=== PATIENT | female | born 1970 | race Caucasian/White ===

== ENCOUNTER 2018-01-05 15:12 | Emergency (ER) | payer OTHER ==
[~2018-01-05] VITALS: Ht 160 cm; Wt 63.5 kg
--- NOTE | 2018-01-05 15:30 | ER Report ---
History and Physical Time Seen By MD: 15:16 Hx. of Stated Complaint: PATIENT WRECKED SKIING AND HURT HER LEFT KNEE. HPI/ROS CHIEF COMPLAINT: Left knee injury HISTORY OF PRESENT ILLNESS: Patient is a 47-year-old female accompanied by her mother, who presents the ED with complaint of left knee injury that occurred about an hour ago. She states that she came off a ski lift and twisted her left knee. She states that she had pain bearing weight after this. She has noticed pain with any range of motion of her knee. She states that she feels it is slightly swollen. She is not taking any medication for this. She has not applied ice. REVIEW OF SYSTEMS: Respiratory: No cough, no dyspnea. Cardiovascular: No chest pain, no palpitations. Gastrointestinal: No vomiting, no abdominal pain. Musculoskeletal: See history of present illness. Allergies: Coded Allergies: sulfamethoxazole (Verified Allergy, Intermediate, HIVES, 01/05/18) trimethoprim (Verified Allergy, Intermediate, HIVES, 01/05/18) Home Meds No Active Prescriptions or Reported Meds Reviewed Nurses Notes: Yes Old Medical Records Reviewed: Yes Hx Substance Use Disorder: No Hx Alcohol Use: No Constitutional Vital Sign - Last 24 Hours 01/05/18 01/05/18 01/05/18 01/05/18 15:12 15:17 15:18 15:27 Temp 99.1 Pulse ??? 120 116 Resp 24 B/P (MAP) 169/95 (119) 169/95 Pulse Ox 96 97 O2 Delivery Room Air 01/05/18 01/05/18 01/05/18 01/05/18 15:42 15:46 15:57 16:00 Pulse 106 113 B/P (MAP) 124/80 (95) 125/76 (92) Pulse Ox 95 96 01/05/18 01/05/18 01/05/18 16:12 16:27 16:30 Pulse 109 104 B/P (MAP) 134/74 (94) Pulse Ox 95 95 Physical Exam General Appearance: The patient is alert, has no immediate need for airway protection and no current signs of toxicity. Patient appears to be in no acute distress. Respiratory: Chest is non tender, lungs are clear to auscultation. Cardiac: regular rate and rhythm Musculoskeletal: Neck: Neck is supple and non tender. There is left lateral knee tenderness with palpation. There is slight swelling appreciated. No ecchymosis identified. 4 range of motion left knee with some pain. Negative anterior/posterior drawer sign. There is pain with varus and valgus stress tests as well as Ariana's exam. Skin: No rashes or lesions. DIFFERENTIAL DIAGNOSIS: After history and physical exam differential diagnosis was considered for left knee injury including fracture, sprain, contusion, ligamentous or meniscus injury. This is an incomplete list. Medical Decision Making EKG/Imaging Imaging Left Knee Xrays: IMPRESSION: Mild degenerative spurring with a small suprapatellar effusion of uncertain chronicity. No acute bony injury. Report Dictated By: Bhavesh Fountain MD at 01/05/2018 4:39 PM Report E-Signed By: Bhavesh Fountain MD at 01/05/2018 4:40 PM ED Course/Re-evaluation ED Course Will obtain left knee x-rays. 01/05/2018 4:52:17 pm - discussed the x-rays with patient. There is no acute fracture. She does have a small effusion. Given the location of her pain it is possible that she does have some meniscal or lateral collateral ligament injury and discussed this with her. She may use crutches as needed. Advised to use a new compression brace and follow-up with orthopedic surgery. Decision to Disposition Date: Jan 05, 2018 Decision to Disposition Time: 17:02 Depart Departure Latest Vital Signs Vital Signs Date Time Temp Pulse Resp B/P (MAP) Pulse Ox O2 Delivery O2 Flow Rate FiO2 01/05/18 16:30 134/74 (94) 01/05/18 16:27 104 95 01/05/18 15:18 99.1 24 Room Air Impression: Primary Impression: Left knee injury Condition: Improved Disposition: HOME OR SELF-CARE New Scripts No Active Prescriptions or Reported Meds Patient Instructions: Knee Pain (ED) Additional Instructions: Rest, ice, elevate. May use crutches as needed. Should using a compression brace. Follow-up with orthopedic surgery or primary care provider in 3-4 days. If having any worsening or concerning symptoms may return to the emergency department. May take Tylenol or ibuprofen for pain. Problem Qualifiers Primary Impression: Left knee injury Encounter type: initial encounter Qualified Codes: S89.92XA - Unspecified injury of left lower leg, initial encounter ELOISA KANG PA-C Jan 05, 2018 15:30
--- NOTE | 2018-01-05 16:44 | RADIOLOGY IMAGING REPORT ---
FACILITY: [facility] PATIENT NAME: Sierra Osborne : 1970 MR: [id number] V: [id number] EXAM DATE: ORDERING PHYSICIAN: ELOISA KANG TECHNOLOGIST: Location: [facility] - [place] Patient: Sierra Osborne : 1970 Visit/Account:[id number] Date of Sevice: 01/05/2018 EXAMINATION: Right knee, 4 views 01/05/2018 4:08 PM HISTORY: Fall. Lateral knee pain. COMPARISON: None FINDINGS: Mild spurring along the tibial spines and minimal squaring or spurring of patellar margins . Suprapatellar joint effusion. No acute bony injury evident. IMPRESSION: Mild degenerative spurring with a small suprapatellar effusion of uncertain chronicity. N o acute bony injury. Report Dictated By: Bhavesh Fountain MD at 01/05/2018 4:39 PM Report E-Signed By: Bhavesh Fountain MD at 01/05/2018 4:40 PM WSN:[id number]
[2018-01-05 17:12] VITALS: BP 121/83
== END 2018-01-05 17:07 | disposition home or self-care (01) ==
LOC: ER 15:18
DX: S89.92XA Unspecified injury of left lower leg, initial encounter (principal); Y93.23 Activity, snow (alpine) (downhill) skiing, snowboarding, sledding, tobogganing and snow tubing
CPT/HCPCS: 73564; 99283